=== PATIENT | female | born 1965 | race Caucasian/White ===

== ENCOUNTER 2020-01-11 20:11 | Emergency (ER) | payer BC ==
--- NOTE | 2020-01-11 22:09 | RADIOLOGY REPORT (SQ) ---
Right foot three view on 01/11/2020 at 9:39 PM CLINICAL INDICATION: Injury, foot pain COMPARISON: None FINDINGS: Plantar calcaneal spur is noted. There is linear calcification between the base of the first and second metatarsal suggesting a small avulsion fracture. There may be slight widening between the medial cuneiform and base of the second metatarsal raising question of Lisfranc ligament injury. Follow-up CT could better evaluate the midfoot. No dislocation is noted. No other fracture is noted. IMPRESSION: Probable avulsion fracture from unknown definite donation site either involving the base of the first or second metatarsal with findings raising the question of Lisfranc ligament injury. Follow-up CT could better evaluate the midfoot.
[2020-01-11] MEDS ORDERED: OXYCODONE-ACETAMINOPHEN 5-325 MG TABLET PO ONE (22:28)
[2020-01-11] MEDS ORDERED: ONDANSETRON 4 MG TAB.RAPDIS PO ONE (22:28)
--- NOTE | 2020-01-11 22:29 | ER Document Report ---
HPI - HPI Time Seen by Provider: 01/11/20 22:16 Pain Level: 4 Context: Patient is a 54-year-old female that comes emergency department for chief complaint of right foot injury. She states she stepped down onto a hard surface while trying to get her dog situated, she states that she felt sharp pain and heard a pop, she states since that time she has had swelling and pain in the middle part of her foot extending over towards the middle and bottom of the foot. She denies any other injuries. She is not on a blood thinner. She has no other complaints. - CONSTITUTIONAL Constitutional: DENIES: Fever, Chills - DERM Skin Color: Normal Past Medical History - General Information source: Patient - Social History Smoking Status: Never Smoker Frequency of alcohol use: None Drug Abuse: None Lives with: Family Family History: Reviewed & Not Pertinent Patient has homicidal ideation: No - Past Medical History Cardiac Medical History: Denies: Hx Coronary Artery Disease, Hx Heart Attack, Hx Hypertension Pulmonary Medical History: Denies: Hx Asthma, Hx Bronchitis, Hx COPD, Hx Pneumonia Neurological Medical History: Denies: Hx Cerebrovascular Accident, Hx Seizures Musculoskeletal Medical History: Denies Hx Arthritis Past Surgical History: Denies: Hx Hysterectomy - Immunizations Hx Diphtheria, Pertussis, Tetanus Vaccination: Yes - TETANUS 06/11/15 Vertical Provider Document - CONSTITUTIONAL General Appearance: WD/WN, No Apparent Distress - INFECTION CONTROL TRAVEL OUTSIDE OF THE [place] IN LAST 30 DAYS: No - HEENT HEENT: Atraumatic, Normocephalic - NECK Neck: Normal Inspection - RESPIRATORY Respiratory: Breath Sounds Normal, No Respiratory Distress - CARDIOVASCULAR Cardiovascular: Regular Rate, Regular Rhythm - GI/ABDOMEN Gastrointestinal: Abdomen Soft, Abdomen Non-Tender - BACK Back: Normal Inspection - MUSCULOSKELETAL/EXTREMETIES Musculoskeletal/Extremeties: MAEW, FROM, Tender - There is soft tissue swelling with tenderness at the right lateral malleolus and over the dorsum of the foot with some ecchymosis. Normal dorsalis pedis, normal capillary refill and sensation, normal foot, leg, knee, hip exam otherwise. No wounds. - NEURO Level of Consciousness: Awake, Alert, Appropriate Motor/Sensory: No Motor Deficit, No Sensory Deficit - DERM Integumentary: Warm, Dry, No Rash Course - Re-evaluation Re-evalutation: Patient with swelling to the right lateral malleolus, dorsal foot, but no other signs of trauma or injury. X-ray shows possible avulsion fracture, possibly more including even Lisfranc injury, CAT scan is recommended if needed. I discussed with patient, patient states she hopes to return to work rapidly and is hoping she can simply recover from a avulsion fracture quickly and be done with it, as result CAT scan was performed. CAT scan does show multiple small fractures, Lisfranc is still not completely ruled out, avulsion fracture still noted. Patient does state understanding, splint was placed, crutches provided, I discussed orthopedic follow-up, she states she will see her orthopedic in the [facility] and requested report. We attempted to give her a CD but we were unable to because our equipment was not working, we will attempt to timeshare the report with [facility]. Patient states understanding and agreement. - Vital Signs Vital signs: Temp Pulse Resp BP Pulse Ox 98.5 F 65 16 121/67 99 01/11/20 20:56 01/11/20 20:30 01/11/20 20:30 01/11/20 20:30 01/11/20 20:30 Procedures - Immobilization Right ankle/foot Pre-Proc Neuro Vasc Exam: Normal Immobilizer type: Posterior ankle Performed by: PCT Post-Proc Neuro Vasc Exam: Normal Alignment checked and good: Yes Discharge - Discharge Clinical Impression: Right foot injury Qualifiers: Encounter type: initial encounter Qualified Code(s): S99.921A - Unspecified injury of right foot, initial encounter Metatarsal fracture Qualifiers: Encounter type: initial encounter Metatarsal bone: unspecified metatarsal Fracture type: closed Fracture alignment: nondisplaced Laterality: right Qualified Code(s): S92.301A - Fracture of unspecified metatarsal bone(s), right foot, initial encounter for closed fracture Condition: Stable Disposition: HOME, SELF-CARE Additional Instructions: You have multiple small fractures in your midfoot and also the avulsion fracture as we discussed. Please wear the splint, use the crutches, and call your orthopedics tomorrow for follow-up, take your CD with you. Take the pain medica tion if needed. Return for any concerning symptoms including severe worsening swelling or pain. Prescriptions: Morphine Sulfate [Morphine Ir 15 Mg Tablet] 15 mg PO TID PRN #15 tablet PRN Reason: Forms: Return to Work Referrals: JADE RIDER MD [Primary Care Provider] - Follow up as needed
[2020-01-11] MEDS ORDERED: ACETAMINOPHEN 325 MG TABLET PO ONE (22:35)
--- NOTE | 2020-01-11 23:44 | RADIOLOGY REPORT (SQ) ---
CT right foot without contrast on 01/11/2020 at 10:55 PM CLINICAL INDICATION: Injury, pain, follow-up abnormal x-ray TECHNIQUE: Multiple axial images are obtained throughout the right foot and ankle without the administration of contrast. Sagittal and coronal reformatted images are also performed and reviewed. This exam was performed according to our departmental dose-optimization program, which includes automated exposure control, adjustment of the mA and/or kV according to patient size and/or use of iterative reconstruction technique. Total DLP is 114.8 mGy*cm. COMPARISON: X-ray from 01/11/2020 FINDINGS: There is a curvilinear apparent small avulsion fracture along the anterior aspect of the distal tip of the lateral malleolus seen best on axial images 38 through 40 suggesting a small acute avulsion fracture. There is a small likely acute intra-articular avulsion fracture involving the lateral distal aspect of the cuboid seen best on coronal image 28 of series 301. There is an acute, intra-articular, slightly comminuted fracture involving the lateral distal aspect of the lateral cuneiform. There are small acute avulsion fractures involving the base of the second and third metatarsals. There is no dislocation along the midfoot. There may be slight widening between the base of the second metatarsal and the medial cuneiform again raising question of ligamentous injury to the Lisfranc ligament. Consider follow-up MRI. No other acute fracture is noted. Plantar calcaneal spur is noted. IMPRESSION: 1. Small likely acute avulsion fracture involving the distal tip of the lateral malleolus. 2. Multiple small acute midfoot fractures along the tarsometatarsal junctions with possible slight widening in the region of the Lisfranc ligament. There is no dislocation. Consider follow-up MRI to better evaluate for possible Lisfranc ligament injury.
[2020-01-11] MEDS ORDERED: MORPHINE SULFATE IR 15 MG TABLET PO ONE (23:58)
[2020-01-12 00:27] VITALS: BP 120/68
== END 2020-01-12 00:56 | disposition home or self-care (01) ==
LOC: ER 20:11
DX: S99.921A Unspecified injury of right foot, initial encounter (principal); S92.321A Displaced fracture of second metatarsal bone, right foot, initial encounter for closed fracture; S92.331A Displaced fracture of third metatarsal bone, right foot, initial encounter for closed fracture; X58.XXXA Exposure to other specified factors, initial encounter; Y93.89 Activity, other specified
CPT/HCPCS: 99284